=== PATIENT | female | born 1930 | race African-American/Black ===

== ENCOUNTER 2018-10-07 08:36 | Emergency (ER) | payer OTHER, MEDICAID ==
[~2018-10-07] VITALS: Ht 162.6 cm; Wt 54.4 kg
--- NOTE | 2018-10-07 08:45 | NUR ---
ED Nurse Note: patient was brought by RA, confused, disoriented, AAO x 1. per RA they found her by [employer] walking around. skin is dry and intact. breathing is even nonlabor, VSS. patient was cold, so she was placed in the gown, connected to the monitor and provided warm blankets. will continue to monitor
[2018-10-07 09:07] VITALS: BP 152/88
[2018-10-07] MEDS ORDERED: UNOBMED (09:46)
--- NOTE | 2018-10-07 10:07 | Diagnostic Imaging Report ---
Indication: Altered mental status Technique: Contiguous 5 mm thick transaxial imaging of the head obtained in a Siemens Sensation [address] scanner. Soft tissue and bone windows generated. Automatic Exposure Control was utilized. Total Dose length Product (DLP): 1245.[address] Dose Index Volume (CTDIvol): 70.38 mGy Comparison: none Findings: There is a heterogeneous mixed attenuation but primarily low attenuation subdural hematoma over the left cerebral hemisphere including the frontal temporal and parietal region. The hematoma extends into the anterior aspect of the interhemispheric fissure and has a maximum thickness of about 8 mm on transaxial images. There is minimal mass effect on the underlying cerebrum with approximately 4 mm shift from left to right. The cerebral sulci appear relatively symmetric. Lateral ventricles are symmetric. The hematoma is likely subacute in age. There is no associated skull fracture. There is no associated soft tissue contusion involving the extracranial scalp. The paranasal sinuses and mastoids appear clear as visualized. There is mild to moderate prominence of the sulci ventricles and basal cisterns consistent with atrophy which involves both cerebrum and cerebellum. There is low-attenuation of the white matter, mild in degree mostly in the periventricular regions. IMPRESSION: Subdural hematoma over the left cerebrum as described above. Minimal shift of the midline structures approximately 4 mm from left to right. Moderate atrophy of the brain. The CT scanner at [facility] is accredited by the [employer] and the scans are performed using dose optimization techniques as appropriate to a performed exam including Automatic Exposure control.
--- NOTE | 2018-10-07 10:09 | NUR ---
ED Nurse Note: per JASSON Pride will waiting for patient's son. withhold for labs
[2018-10-07 11:51] VITALS: BP 144/78
--- NOTE | 2018-10-07 11:53 | NUR ---
ED Nurse Note: Patient is being discharged from medical care with family member. Awake, alert and oriented x2. ID band were removed. Patient ambulated out with all personal belongings with steady gait.
--- NOTE | 2018-10-07 16:49 | Emergency Room Report ---
History of Present Illness General Chief Complaint: Altered Level of Consciousness Source: Patient Present Illness HPI 88-year-old female presents ED for evaluation. Brought in by EMS for wandering on the streets. Initially patient was documented as Mabel Francisco. Patient later told us her name as Madison Saunders. Did not know her address. Did not know her family's phone number. Patient denies any complaints. Denies any headache or blurry vision. Denies any nausea or vomiting. Denies chest pain. No other aggravating relieving factors. Denies any other associated symptoms Allergies: Coded Allergies: UNABLE TO ASSESS (Unverified , 10/07/18) Patient History Past Medical History: dementia Past Surgical History: none Pertinent Family History: none Social History: Denies: smoking, alcohol use, drug use Now: No Immunizations: UTD Reviewed Nursing Documentation: PMH: Agreed; PSxH: Agreed Review of Systems All Other Systems: negative except mentioned in HPI Physical Exam Vital Signs Date Time Temp Pulse Resp B/P (MAP) Pulse Ox O2 Delivery O2 Flow Rate FiO2 10/07/18 08:30 98.1 76 18 146/92 96 Room Air Sp02 EP Interpretation: reviewed, normal General Appearance: no apparent distress, alert, GCS 15, non-toxic Head: normocephalic, atraumatic Eyes: bilateral eye normal inspection, bilateral eye PERRL ENT: hearing grossly normal, normal pharynx, no angioedema, normal voice Neck: full range of motion, supple/symm/no masses Respiratory: chest non-tender, lungs clear, normal breath sounds, speaking full sentences Cardiovascular #1: regular rate, rhythm, no edema Cardiovascular #2: 2+ carotid (R), 2+ carotid (L), 2+ radial (R), 2+ radial (L) , 2+ dorsalis pedis (R), 2+ dorsalis pedis (L) Gastrointestinal: normal bowel sounds, non tender, soft, non-distended, no guarding, no rebound Rectal: deferred Genitourinary: normal inspection, no CVA tenderness Musculoskeletal: back normal, gait/station normal, normal range of motion, non- tender Neurologic: alert, responsive, motor strength/tone normal, sensory intact, speech normal, other - dementia Psychiatric: mood/affect normal, no suicidal/homicidal ideation, other - dementia Reflexes: 3+ bicep (R), 3+ bicep (L), 3+ tricep (R), 3+ tricep (L), 3+ knee (R) , 3+ knee (L) Skin: normal color, no rash, warm/dry, well hydrated Lymphatic: no adenopathy Medical Decision Making Diagnostic Impression: Primary Impression: Chronic subdural hematoma Additional Impression: Dementia Qualified Codes: F03.90 - Unspecified dementia without behavioral disturbance ER Course 88-year-old female presents ED for wandering on the streets. No complaints Differentialdehydration, sepsis, UTI, CVA She placed on stretcher. After initial history physical exam reveals elderly female in no acute distress. Patient is pleasant and cooperative. Tells me her name is Madison Saunders does not know where she lives. Does not know her family's name. Denies any headache. Denies any chest pain or shortness of breath. Denies any abdominal pain. No focal neurological deficits I initially ordered labs, CT head, EKG CT head shows chronic subdural on the left. Age indeterminate. No midline shift or mass effect EKGnormal sinus rhythm no acute ischemic changes interpreted by me [employer] at bedside. They were able to locate patient's family who were now at bedside. They state that patient is at her baseline mentation. They admit that patient did wander off this morning it was found close to their house. States that she does have dementia and this is the first time this ever happened I explained about the chronic subdural findings. They state patient has lived with them with for years. They do not recall any fall or head injury in recent time. no signs of bruising or injury on the patient's head. Family notes that patient is in hospice care. Given that subdural is likely old and there are no focal deficits and patient is at baseline family states they would prefer to take patient home. I agree with this assessment. We will forego lab draw at this time now that family is here and note that patient is at baseline mentation Safe for discharge and close outpatient follow-up. Patient has a PMD EKG Diagnostic Results Rate: normal Rhythm: NSR ST Segments: no acute changes ASA given to the pt in ED: No Rhythm Strip Diag. Results EP Interpretation: yes Rhythm: NSR, no PVC's, no ectopy CT/MRI/US Diagnostic Results CT/MRI/US Diagnostic Results : Imaging Test Ordered: CT head Impression chronic subdural. No mass effect or midline shift Last Vital Signs Date Time Temp Pulse Resp B/P (MAP) Pulse Ox O2 Delivery O2 Flow Rate FiO2 10/07/18 11:51 98.3 88 18 144/78 99 Room Air Status: improved Disposition: HOME, SELF-CARE Condition: Stable Referrals: NOT CHOSEN IPA/MD,REFERRING Patient Instructions: Subdural Hematoma Ashok Pride MD Oct 07, 2018 16:49
== END 2018-10-07 11:53 | disposition home or self-care (01) ==
LOC: EDBD 08:36 → EMR 10:00 → EDBD 10:00 → EMR 11:53
DX: F03.90 Unspecified dementia, unspecified severity, without behavioral disturbance, psychotic disturbance, mood disturbance, and anxiety (principal); I62.03 Nontraumatic chronic subdural hemorrhage
CPT/HCPCS: 70450; 99284